=== PATIENT | female | born 1975 | race Caucasian/White ===

== ENCOUNTER 2022-12-02 20:12 | Emergency (ER) | payer MEDICAID ==
[~2022-12-02] VITALS: Ht 157.5 cm; Wt 80.7 kg
[2022-12-02 20:18] VITALS: BP 159/104
--- NOTE | 2022-12-02 20:40 | NUR ---
PT TO BED #8
--- NOTE | 2022-12-02 20:41 | NUR ---
UA COLLECTED AND SENT TO LAB
[2022-12-02 20:45] LABS: APPEARANCE,URINE CLEAR (CLEAR); BILIRUBIN,URINE NEGATIVE (NEGATIVE); BLOOD, URINE 3+ (NEGATIVE); COLOR,URINE YELLOW (YELLOW); LEUKOCYTE ESTERASE ,URINE NEGATIVE (NEGATIVE); NITRITE, URINE NEGATIVE (NEGATIVE); UGLUCOSE NEGATIVE (NEGATIVE)
--- NOTE | 2022-12-02 20:45 | NUR ---
47 Y/O F BIB WITH C/C OF L THROBBING ABD PAIN 10/10 RADAITING TOWARD L BUTTOCKS AND LL LEG AND BILATERAL FEET. PT STATED PRIMRY DOCTOR TOLD HER SHE HAS SOME CYST IN HER R AND L UTERUS. PT STATED SHE TOOK MOTRIN X1HR AGO. PT IS A&OX4, SKIN INTACT, AMBULATORY. PMH- ENDOMETROSIS, BIPOLAR, STROKE X1YR. HYPOTHYROID, VERTIGO AND ANEMIA NKA
[2022-12-02 20:47] LABS: BASOPHILS % (AUTO) 0.5 % (0.0-2.0); EOSINOPHILS # (AUTO) 0.2 K/uL (0-0.4); EOSINOPHILS % (AUTO) 2.4 % (0.0-4.0); HEMATOCRIT 34.4 % (36-48); HEMOGLOBIN 11.3 g/dL (12.0-16.0); LYMPHOCYTES # (AUTO) 1.2 K/uL (2.5-16.5); LYMPHOCYTES % (AUTO) 16.4 % (20.5-51.1); MEAN CORPUSCULAR HEMOGLOBIN 26 pg (27-31); MEAN CORPUSCULAR HGB CONC 33 g/dL (33-37); MEAN CORPUSCULAR VOLUME 78.2 fL (80-94); MONOCYTES # (AUTO) 0.4 K/uL (0.8-1.0); MONOCYTES % (AUTO) 5.3 % (1.7-9.3); NEUTROPHILS # (AUTO) 5.7 K/uL (1.8-7.7); NEUTROPHILS % (AUTO) 75.4 % (42.2-75.2); PLATELET COUNT (AUTO) 283 K/uL (140-450); RED BLOOD CELL COUNT(AUTO) 4.41 MIL/uL (4.20-5.40); RED CELL DISTRIBUTION WIDTH 16.3 % (11.6-13.7); WHITE BLOOD COUNT (AUTO) 7.5 K/uL (4.8-10.8)
[2022-12-02 21:02] LABS: ALBUMIN 3.7 g/dL (3.4-5.0); ANION GAP 9.7 (8-16); CARBON DIOXIDE 29.4 mmol/L (21-32); CREATININE 0.7 mg/dL (0.6-1.3); POTASSIUM 4.1 mmol/L (3.5-5.1); RBC,URINE TOO NUMEROUS TO COUN /HPF (0-5); TOTAL BILIRUBIN 0.1 mg/dL (0.0-1.0)
[2022-12-02] MEDS ORDERED: HYDROcodone/APAP 7.5/325 MG 1 TAB PO ONE (21:45)
--- NOTE | 2022-12-02 21:51 | NUR ---
Ultrasound at bedside.
--- NOTE | 2022-12-02 22:57 | NUR ---
X-RAY AT BEDSIDE
[2022-12-03] MEDS ORDERED: ACET-5629 PO ×2 (00:36→00:49)
[2022-12-03 00:51] VITALS: BP 159/104
--- NOTE | 2022-12-03 00:51 | NUR ---
Patient discharged with v/s stable. Written and verbal after care instructions given and explained. Patient alert, oriented and verbalized understanding of instructions. Ambulatory with steady gait. All questions addressed prior to discharge. ID band removed. Patient advised to follow up with PMD. Rx of PERCOCET given. Patient educated on indication of medication including possible reaction and side effects. Opportunity to ask questions provided and answered.
== END 2022-12-03 00:51 | disposition home or self-care (01) ==
LOC: MED 20:12
DX: R10.32 Left lower quadrant pain (principal)
CPT/HCPCS: 36415; 76856; 80053; 81001; 81025; 83690; 85025; 93976; 99284; Q0092

== ENCOUNTER 2022-12-29 18:19 | Emergency (ER) | payer MEDICAID ==
[~2022-12-29 18:19] MED LIST: ACET-5629 PO
--- NOTE | 2022-12-29 18:47 | NUR ---
PATIENT CALL TO TRIAGE, NO RESPONSE PATIENT LEFT WITHOUT BEING SEEN BY DR. HOROWITZ. NO FURTHER CARE PROVIDED FOR PATIENT.
--- NOTE | 2022-12-29 19:10 | NUR ---
CALLED FOR THE SECOND TIME, NO RESPONSE
--- NOTE | 2022-12-29 19:20 | NUR ---
CALLED FOR THE THIRD TIME, NO RESPONSE
== END 2022-12-29 18:47 | disposition left against medical advice (07) ==
LOC: MED 18:19
DX: R30.9 Painful micturition, unspecified (principal); Z53.21 Procedure and treatment not carried out due to patient leaving prior to being seen by health care provider

== ENCOUNTER 2023-10-26 01:11 | Emergency (ER) | payer MEDICAID ==
[~2023-10-26] VITALS: Ht 157.5 cm; Wt 79.4 kg
[2023-10-26 01:27] VITALS: BP 139/80; PULSE 65; RESP 17; TEMP 97.8; O2SAT 97
[2023-10-26 01:55] LABS: APPEARANCE,URINE CLEAR (CLEAR); BILIRUBIN,URINE NEGATIVE (NEGATIVE); BLOOD, URINE NEGATIVE (NEGATIVE); COLOR,URINE YELLOW (YELLOW); LEUKOCYTE ESTERASE ,URINE NEGATIVE (NEGATIVE); NITRITE, URINE NEGATIVE (NEGATIVE); PH,URINE 7.5 (5.0-9.0); PROTEIN,URINE NEGATIVE (NEGATIVE); UGLUCOSE NEGATIVE (NEGATIVE); UROBILINOGEN,URINE 0.2 EU/dL (0.2 - 1)
[2023-10-26] MEDS: NACL 0.9% 1,000 ML IV SCH (02:14)
[2023-10-26 02:25] LABS: BASOPHILS # (AUTO) 0.1 K/uL (0.00-0.22); BASOPHILS % (AUTO) 0.6 % (0.0-2.0); EOSINOPHILS # (AUTO) 0.2 K/uL (0-0.4); EOSINOPHILS % (AUTO) 1.6 % (0.0-4.0); HEMATOCRIT 33.3 % (36-48); HEMOGLOBIN 10.5 g/dL (12.0-16.0); LYMPHOCYTES % (AUTO) 10.4 % (20.5-51.1); MEAN CORPUSCULAR HEMOGLOBIN 22 pg (27-31); MEAN CORPUSCULAR HGB CONC 32 g/dL (33-37); MEAN CORPUSCULAR VOLUME 69.4 fL (80-94); MONOCYTES # (AUTO) 0.5 K/uL (0.8-1.0); MONOCYTES % (AUTO) 4.9 % (1.7-9.3); NEUTROPHILS # (AUTO) 7.8 K/uL (1.8-7.7); NEUTROPHILS % (AUTO) 82.5 % (42.2-75.2); PLATELET COUNT (AUTO) 312 K/uL (140-450); RED BLOOD CELL COUNT(AUTO) 4.79 MIL/uL (4.20-5.40); RED CELL DISTRIBUTION WIDTH 18.3 % (11.6-13.7); WHITE BLOOD COUNT (AUTO) 9.5 K/uL (4.8-10.8)
[2023-10-26] MEDS: KETOROLAC 30 MG/ML VIAL IVP ONE (02:29)
[2023-10-26] MEDS: ONDANSETRON 4 MG/2 ML VIAL IVP ONE ×2 (02:30→05:57)
[2023-10-26 02:41] LABS: ANION GAP 12.6 (8-16); CREATININE 0.7 mg/dL (0.6-1.3); POTASSIUM 3.6 mmol/L (3.5-5.1)
[2023-10-26 02:45] LABS: ALBUMIN 3.6 g/dL (3.4-5.0); BILIRUBIN,DIRECT 0.1 mg/dL (0.0-0.3); TOTAL BILIRUBIN 0.2 mg/dL (0.0-1.0); TOTAL PROTEIN, SERUM 7.8 g/dL (6.4-8.2)
[2023-10-26] MEDS: MORPHINE SULFATE 4 MG/ML SYR IVP ONE (04:34)
[2023-10-26] MEDS ORDERED: OMEP20EC11 PO (05:44)
[2023-10-26] MEDS ORDERED: METO-485 PO (05:44)
[2023-10-26 06:01] VITALS: BP 117/70; PULSE 62; RESP 18; TEMP 97.9; O2SAT 98
== END 2023-10-26 06:01 | disposition home or self-care (01) ==
LOC: MED 01:11
DX: K21.9 Gastro-esophageal reflux disease without esophagitis (principal); R10.84 Generalized abdominal pain; R11.2 Nausea with vomiting, unspecified; Z90.49 Acquired absence of other specified parts of digestive tract
CPT/HCPCS: 36415; 74176; 80048; 80076; 81003; 81025; 83690; 85025; 96361; 96374; 96375; 96376; 99285; J1885; J2270; J2405; J7030

== ENCOUNTER 2023-12-31 15:47 | Emergency (ER) | payer MEDICAID ==
[~2023-12-31] VITALS: Ht 157.5 cm; Wt 72.6 kg
[~2023-12-31 15:47] MED LIST changes: +METO-485 PO; +OMEP20EC11 PO
[2023-12-31 15:58] VITALS: BP 138/85; PULSE 70; RESP 18; TEMP 97.3; O2SAT 99
== END 2023-12-31 19:15 | disposition left against medical advice (07) ==
LOC: MED 15:47
DX: R10.2 Pelvic and perineal pain (principal); Z53.21 Procedure and treatment not carried out due to patient leaving prior to being seen by health care provider

== ENCOUNTER 2024-02-22 13:00 | Emergency (ER) | payer MEDICAID ==
[~2024-02-22] VITALS: Ht 157.5 cm; Wt 72.6 kg
[2024-02-22 13:17] VITALS: BP 143/86; PULSE 64; RESP 22; TEMP 98.1; O2SAT 98
[2024-02-22] MEDS: NACL 0.9% 1,000 ML IV ONE (14:41)
[2024-02-22] MEDS: KETOROLAC 30 MG/ML VIAL IVP ONE (14:52)
[2024-02-22] MEDS: ONDANSETRON 4 MG/2 ML VIAL IVP ONE (14:53)
[2024-02-22 15:23] LABS: BASOPHILS % (AUTO) 0.5 % (0.0-2.0); EOSINOPHILS # (AUTO) 0.1 K/uL (0-0.4); EOSINOPHILS % (AUTO) 1.9 % (0.0-4.0); HEMATOCRIT 32.1 % (36-48); HEMOGLOBIN 10.2 g/dL (12.0-16.0); LYMPHOCYTES # (AUTO) 1.3 K/uL (2.5-16.5); MEAN CORPUSCULAR HEMOGLOBIN 21 pg (27-31); MEAN CORPUSCULAR HGB CONC 32 g/dL (33-37); MEAN CORPUSCULAR VOLUME 66.3 fL (80-94); MONOCYTES # (AUTO) 0.4 K/uL (0.8-1.0); MONOCYTES % (AUTO) 5.6 % (1.7-9.3); NEUTROPHILS # (AUTO) 4.6 K/uL (1.8-7.7); PLATELET COUNT (AUTO) 350 K/uL (140-450); RED BLOOD CELL COUNT(AUTO) 4.84 MIL/uL (4.20-5.40); RED CELL DISTRIBUTION WIDTH 18.2 % (11.6-13.7); WHITE BLOOD COUNT (AUTO) 6.4 K/uL (4.8-10.8)
[2024-02-22 15:31] LABS: ANION GAP 12.5 (8-16); CALCIUM 8.6 mg/dL (8.5-10.1); CREATININE 0.7 mg/dL (0.6-1.3); POTASSIUM 3.5 mmol/L (3.5-5.1)
[2024-02-22 15:37] LABS: ALBUMIN 3.5 g/dL (3.4-5.0); BILIRUBIN,DIRECT 0.1 mg/dL (0.0-0.3); TOTAL BILIRUBIN 0.2 mg/dL (0.0-1.0); TOTAL PROTEIN, SERUM 7.2 g/dL (6.4-8.2)
[2024-02-22 16:00] LABS: APPEARANCE,URINE SL CLOUDY (CLEAR); BILIRUBIN,URINE NEGATIVE (NEGATIVE); BLOOD, URINE 3+ (NEGATIVE); LEUKOCYTE ESTERASE ,URINE 1+ (NEGATIVE); NITRITE, URINE NEGATIVE (NEGATIVE); PH,URINE 7.5 (5.0-9.0); PROTEIN,URINE TRACE (NEGATIVE); UGLUCOSE TRACE (NEGATIVE); UROBILINOGEN,URINE 0.2 EU/dL (0.2 - 1)
[2024-02-22 16:05] LABS: COLOR,URINE STRAW (YELLOW)
[2024-02-22] MEDS ORDERED: CEPH-588 PO (16:16)
[2024-02-22] MEDS ORDERED: MIRABULK PO (16:16)
[2024-02-22] MEDS ORDERED: ONDA-188 PO (16:16)
[2024-02-22] MEDS ORDERED: PYR100 PO (16:16)
[2024-02-22] MEDS ORDERED: IBUP-2213 PO (16:16)
[2024-02-22 16:19] LABS: BACTERIA,URINE 1+ /HPF (None Seen); RBC,URINE 50-80 /HPF (0-5); SQUAMOUS EPITHELIAL CELL,UR 4-10 (MOD) /LPF (0-3 (FEW))
[2024-02-22 16:49] VITALS: BP 121/75; PULSE 63; RESP 14; TEMP 98.1; O2SAT 98
== END 2024-02-22 16:48 | disposition home or self-care (01) ==
LOC: MED 13:00
DX: N39.0 Urinary tract infection, site not specified (principal); R03.0 Elevated blood-pressure reading, without diagnosis of hypertension; F31.9 Bipolar disorder, unspecified; Z90.49 Acquired absence of other specified parts of digestive tract; Z79.899 Other long term (current) drug therapy; Z79.1 Long term (current) use of non-steroidal anti-inflammatories (NSAID)
CPT/HCPCS: 36415; 74176; 80048; 80076; 81001; 81025; 83690; 85025; 87086; 96361; 96374; 96375; 99285; J1885; J2405; J7030; 87186